=== PATIENT | female | born 1980 | race Caucasian/White ===

== ENCOUNTER 2020-02-27 12:11 | Emergency (ER) | payer OTHER ==
[2020-02-27 13:04] VITALS: Ht 157.5 cm
[2020-02-27 18:40] VITALS: BP 156/82
== END 2020-02-27 18:40 | disposition home or self-care (01) ==
LOC: ED 12:11
DX: N76.0 Acute vaginitis (principal); Z98.890 Other specified postprocedural states
CPT/HCPCS: 82962; 87491; 87591

== ENCOUNTER 2020-04-15 15:46 | Emergency (ER) | payer OTHER ==
[~2020-04-15] VITALS: Ht 157.5 cm; Wt 81.2 kg
[2020-04-15 15:59] VITALS: Ht 157.5 cm; Wt 81.2 kg
[2020-04-15 16:55] LABS: BASOPHIL % 0.1 % (0-2); PLATELET COUNT 361 x10^3mcL (130-400); RED CELL DISTRIBUTION WIDTH 13.1 % (11.5-14.5)
[2020-04-15 17:02] LABS: CALCIUM 9.4 mg/dL (8.5-10.1); CARBON DIOXIDE 27.3 mmol/L (21-32); CHLORIDE SERUM 99 mmol/L (98-107); CREATININE SERUM 0.7 mg/dL (0.6-1.0); GFR1 > 60 mL/min; GLUCOSE SERUM 227 mg/dL (74-106); POTASSIUM SERUM 3.7 mmol/L (3.5-5.1); SODIUM SERUM 136 mmol/L (136-145)
[2020-04-15 17:07] LABS: ALBUMIN 4.1 g/dL (3.4-5.0); ALKALINE PHOSPHATASE 88 U/L (46-116); ALT/SGPT 42 U/L (14-59); AST/SGOT 26 U/L (15-37); BILIRUBIN TOTAL 0.6 mg/dL (0.20-1.00)
[2020-04-15 17:08] LABS: TOTAL PROTEIN, SERUM 8.3 g/dL (6.4-8.2)
[2020-04-15 19:48] LABS: FREE T4 1.17 ng/dL (0.76-1.46); FREE THYROXINE INDEX 2.4 ug/dL (1.4-4.5); T4(THYROXINE) 8.5 ug/dL (4.7-13.3)
[2020-04-15 19:49] LABS: T3 TOTAL 1.24 ng/mL
[2020-04-15 20:33] VITALS: BP 127/90
== END 2020-04-15 20:33 | disposition home or self-care (01) ==
LOC: ED 15:46
PROVIDERS: Emergency Medicine
DX: R07.89 Other chest pain (principal); E11.65 Type 2 diabetes mellitus with hyperglycemia; R20.0 Anesthesia of skin; E78.00 Pure hypercholesterolemia, unspecified; Z98.890 Other specified postprocedural states
CPT/HCPCS: 83880; 84439; 85378; J7030; Q0092

== ENCOUNTER 2020-05-16 13:36 | Emergency (ER) | payer OTHER ==
[~2020-05-16] VITALS: Ht 157.5 cm; Wt 79.4 kg
[2020-05-16 13:48] VITALS: Ht 157.5 cm; Wt 79.4 kg
[2020-05-16 14:39] LABS: BASOPHIL % 0.4 % (0-2); RED CELL DISTRIBUTION WIDTH 13.1 % (11.5-14.5)
[2020-05-16 14:51] LABS: CARBON DIOXIDE 30.3 mmol/L (21-32); CHLORIDE SERUM 99 mmol/L (98-107); CREATININE SERUM 0.8 mg/dL (0.6-1.0); GFR1 > 60 mL/min; GLUCOSE SERUM 225 mg/dL (74-106); POTASSIUM SERUM 3.6 mmol/L (3.5-5.1); SODIUM SERUM 135 mmol/L (136-145)
[2020-05-16 14:52] LABS: PLATELET COUNT 403 x10^3mcL (130-400)
[2020-05-16 15:03] LABS: ALBUMIN 4.4 g/dL (3.4-5.0); ALKALINE PHOSPHATASE 98 U/L (46-116); ALT/SGPT 37 U/L (14-59); AST/SGOT 21 U/L (15-37); BILIRUBIN TOTAL 0.5 mg/dL (0.20-1.00); LIPASE 251 IU/L (73-393)
[2020-05-16 15:05] LABS: TOTAL PROTEIN, SERUM 8.5 g/dL (6.4-8.2)
[2020-05-16 16:55] VITALS: BP 133/90
== END 2020-05-16 16:55 | disposition home or self-care (01) ==
LOC: ED 13:36
PROVIDERS: Emergency Medicine
DX: E11.65 Type 2 diabetes mellitus with hyperglycemia (principal); E78.00 Pure hypercholesterolemia, unspecified; E86.0 Dehydration; Z98.890 Other specified postprocedural states
CPT/HCPCS: 82962; 83880; J7030; Q0092